=== PATIENT | female | born 1960 | race Caucasian/White ===

== ENCOUNTER 2017-04-19 13:46 | Emergency (ER) | payer BC ==
[~2017-04-19] VITALS: Ht 170.2 cm; Wt 61.0 kg
[2017-04-19] MEDS ORDERED: ibuprofen tablet 400 MG TABLET PO ONE (14:30)
[2017-04-19] MEDS ORDERED: IBUP-1984 PO (15:25)
[2017-04-19] MEDS ORDERED: HYDR-565 PO (15:26)
[2017-04-19 15:38] VITALS: BP 125/89
== END 2017-04-19 15:39 | disposition home or self-care (01) ==
LOC: ER 13:47
DX: R07.81 Pleurodynia (principal); R05 Cough; F17.200 Nicotine dependence, unspecified, uncomplicated; Z88.5 Allergy status to narcotic agent
CPT/HCPCS: 71046; 99284